=== PATIENT | female | born 1965 | race Caucasian/White ===

== ENCOUNTER 2024-03-23 12:00 | Inpatient (IN) ==
[2024-03-10 14:07] LABS: Basophils # (Auto) 0.05 K/mcL (0.00-0.30); Basophils % (Auto) 0.6 % (0.0-2.0); Eosinophils # (Auto) 0 K/mcL (0.00-0.70); Eosinophils % (Auto) 0 % (0.0-7.0); Hematocrit 46.3 % (34.1-44.9); Hemoglobin 14.6 g/dL (11.2-15.7); Lymphocytes % (Auto) 21.9 % (15.5-49.0); Mean Cell Volume 85.7 fL (80.0-100.0); Mean Corpuscular HGB Conc 31.5 g/dL (31.0-36.0); Mean Platelet Volume 9.8 fL (8.8-12.5); Monocytes # (Auto) 0.39 K/mcL (0.10-0.90); Monocytes % (Auto) 4.7 % (1.0-12.0); Neutrophils % (Auto) 72.6 % (38.0-78.0); Platelet Count 455 K/mcL (140-440); WBC 8.2 K/mcL (4.5-11.0)
[2024-03-10 14:26] LABS: ALT/SGPT 51 U/L (<40); AST/SGOT 49 U/L (<32); Albumin 4.5 gm/dL (3.2-5.2); Albumin/Globulin Ratio 1.7 (1.0-2.3); Alkaline Phosphatase 108 U/L (39-117); Bilirubin,Total 0.5 mg/dL (0.1-1.0); Blood Urea Nitrogen 13 mg/dL (6-20); Calcium 10.7 mg/dL (8.6-10.4); Carbon Dioxide 26 mmol/L (22-30); Chloride 102 mmol/L (96-108); Globulin 2.6 gm/dL (2.2-3.7); Glomerular Filtration Rate 69; Glucose 147 mg/dL (70-105); Potassium 4.4 mmol/L (3.3-5.1); Sodium 142 mmol/L (133-145)
[2024-03-10 15:01] LABS: Appearance,Urine Cloudy (Clear); Bilirubin,Urine Negative (Negative); Color,Urine Yellow; Glucose,Urine (UA) 500 mg/dL (Negative); Ketones,Urine Negative (Negative); Leukocyte Esterase,Urine Negative /uL (Negative); Nitrate,Urine Negative (Negative); Protein,Urine Negative (Negative); Urine Blood Negative ery/mcL (Negative); Urine RBC 2 /hpf (0-3); Urine Squamous Epithelial Cell 7 /hpf (0-4); Urine WBC 5 /hpf (0-4); Urobilinogen,Urine Normal
[2024-03-10 15:07] LABS: INR 0.9 (0.9-1.1); Prothrombin Time 12.7 sec (11.9-14.5)
[2024-03-10 18:23] LABS: Hemoglobin A1C 7.2 % Hgb (4.0-6.0)
[2024-03-23] MEDS: ACETAMINOPHEN 500 MG TABLET PO SCH (13:04)
[2024-03-23] MEDS: oxyCODONE 10 MG TAB.ER.12H PO SCH (13:04)
[2024-03-23] MEDS: CELECOXIB 200 MG CAPSULE PO SCH (13:04)
[2024-03-23] MEDS: PREGABALIN 75 MG CAPSULE PO SCH (13:20)
[2024-03-23] MEDS ORDERED: GLYCOPYRROLATE 0.2 MG/ML VIAL IV ONE ×2 (16:44→18:46)
[2024-03-23] MEDS ORDERED: KETAMINE 50 MG/ML Syringe IV ONE (16:44)
[2024-03-23] MEDS ORDERED: DEXAMETHASONE 10 MG/ML VIAL ONE (16:44)
[2024-03-23] MEDS ORDERED: LIDOCAINE 2% PF 5 ML VIAL ONE (16:44)
[2024-03-23] MEDS ORDERED: ONDANSETRON 4 MG/2 ML VIAL ONE (16:44)
[2024-03-23] MEDS ORDERED: PROPOFOL 200 MG/20 ML VIAL IV ONE (16:44)
[2024-03-23] MEDS: IPRATROPIUM/ALBUTEROL 3 ML AMPUL.NEB NEB ONE (16:53)
[2024-03-23] MEDS ORDERED: MAGNESIUM HYDROXIDE 30 ML ORAL.SUSP PO PRN (17:38)
[2024-03-23] MEDS ORDERED: HYDROcodone/APAP 10/325MG TABLET PO PRN (17:38)
[2024-03-23] MEDS ORDERED: BISACODYL 10 MG SUPP.RECT PR PRN (17:38)
[2024-03-23] MEDS ORDERED: ALBUTEROL SULFATE 60 PUFF INHALER INH PRN (17:40)
[2024-03-23] MEDS ORDERED: HYDROmorphone 0.5 MG/0.5 ML SYRINGE IV PRN (17:47)
[2024-03-23] MEDS: ceFAZolin 3 GM in DEXTROSE 5% IN WATER 50 ML IV SCH (18:00)
[2024-03-23] MEDS ORDERED: TRANEXAMIC ACID 1,000 MG/10 ML VIAL ONE (18:13)
[2024-03-23] MEDS ORDERED: PHENYLephrine 1 MG/10 ML SYRINGE (ANEST) ONE (18:14)
[2024-03-23] MEDS ORDERED: ePHEDrine 50 MG/ML AMPUL IV ONE (18:17)
[2024-03-23] MEDS ORDERED: ONDANSETRON 4 MG/2 ML VIAL IV PRN ×2 (18:19→18:57)
[2024-03-23] MEDS ORDERED: PHENYLEPHRINE 10 MG/ML VIAL ONE (18:31)
[2024-03-23] MEDS ORDERED: VASOPRESSIN 20 UNIT/ML VIAL ONE (18:38)
[2024-03-23] MEDS: 0.9 % SODIUM CHLORIDE 9 ML, KETOROLAC 30 MG, ROPIVACAINE HCL/PF 49.5 ML, EPINEPHrine 0.... IJ SCH (18:46)
[2024-03-23] MEDS ORDERED: MAGNESIUM SULFATE 2 GM/50 ML BAG IV ONE (18:46)
[2024-03-23] MEDS ORDERED: ROPIVACAINE HCL/PF 30 ML VIAL IJ ONE (18:55)
[2024-03-23] MEDS ORDERED: IPRATROPIUM/ALBUTEROL 3 ML AMPUL.NEB NEB PRN (18:57)
[2024-03-23] MEDS ORDERED: ACETAMINOPHEN 325 MG TABLET PO PRN (19:00)
[2024-03-23] MEDS: TRANEXAMIC ACID 1,000 MG/10 ML VIAL IV ONE (19:33)
[2024-03-23] MEDS: 0.45 % SODIUM CHLORIDE 1,000 ML IV SCH (20:23)
[2024-03-23] MEDS: metFORMIN 500 MG TAB.XL.24H PO SCH (20:48)
[2024-03-23] MEDS: PYRIDOXINE 100 MG TABLET PO SCH (20:48)
[2024-03-23] MEDS: busPIRone 5 MG TABLET PO SCH (20:48)
[2024-03-23] MEDS: MIRTAZAPINE 15 MG TABLET PO SCH (20:48)
[2024-03-23] MEDS: BENZTROPINE 1 MG TABLET PO SCH (20:48)
[2024-03-23] MEDS: SENNOSIDES 1 TABLET PO SCH (20:48)
[2024-03-23] MEDS: 0.9 % SODIUM CHLORIDE 10 ML SYRINGE IV SCH (20:49)
[2024-03-23] MEDS: KETOROLAC 15 MG/ML VIAL IV SCH (20:50)
[2024-03-23] MEDS: ALBUTEROL SULFATE 2.5 MG/3 ML NEBULIZER NEB ONE (22:24)
[2024-03-23] MEDS: LACTATED RINGERS 1,000 ML IV SCH (22:25)
[2024-03-24] MEDS: ceFAZolin 1 GM VIAL IV SCH (01:06)
[2024-03-24] MEDS: CLOZAPINE 50 MG PO SCH (08:31)
[2024-03-24] MEDS: Dapagliflozin Propanediol [Farxiga] 10 mg tablet PO SCH (08:31)
[2024-03-24] MEDS: Fluticasone-Umeclidin-Vilanter [Trelegy Ellipta] INH SCH (08:31)
[2024-03-24] MEDS: ARIPIPRAZOLE 5 MG TABLET PO SCH (08:56)
[2024-03-24] MEDS: DOCUSATE SODIUM 100 MG CAPSULE PO SCH (08:57)
[2024-03-24] MEDS ORDERED: [UNRECOGNIZED DRUG - REMARK] PO SCH (09:00)
== END 2024-03-24 10:30 | disposition home or self-care (01) | DRG 467 ==
LOC: MEDSUR 12:28
PROVIDERS: ADMIT Orthopaedic Surgery; ATTEND Orthopaedic Surgery